=== PATIENT | female | born 1985 | race Caucasian/White ===

== ENCOUNTER 2019-06-04 09:03 | Outpatient (CLI) | payer BC | END 2019-06-04 09:50 | disposition home or self-care (01) | LOC: LDOP 09:03 | PROVIDERS: ATTEND Obstetrics & Gynecology | DX: O24.414 Gestational diabetes mellitus in pregnancy, insulin controlled (principal); Z3A.34 34 weeks gestation of pregnancy | CPT/HCPCS: 59025; 99201; G0463 ==

== ENCOUNTER 2019-06-28 10:29 | Inpatient (IN) | payer BC ==
[~2019-06-28] VITALS: Ht 157.5 cm; Wt 86.4 kg
[2019-06-28 11:05] VITALS: BP 125/83
[2019-06-28 11:05] LABS: MICROSCOPIC NOT IND
[2019-06-28] MEDS ORDERED: OXYTOCIN 30U/ 0.9% NaCL 500ML 500 ML IV ONE (12:40)
[2019-06-28] MEDS ORDERED: D5%-LACTATED RINGERS 1,000 ML IV SCH (12:40)
[2019-06-28] MEDS ORDERED: LACTATED RINGERS 1,000 ML IV SCH (12:40)
[2019-06-28] MEDS ORDERED: OXYTOCIN 30U/ 0.9% NaCL 500ML 500 ML IV PRN ×2 (12:40)
[2019-06-28] MEDS ORDERED: TERBUTALINE 1 MG/ML, 1ML SQ PRN (13:00)
[2019-06-28] MEDS ORDERED: FENTANYL PF 100 MCG/2ML IVPush PRN (13:00)
[2019-06-28] MEDS ORDERED: ONDANSETRON 2MG/ML, 2ML IVPush PRN (13:00)
[2019-06-28] MEDS ORDERED: ALUMINUM/MAG/SIMETHICONE 30 ML UDC PO PRN (13:00)
[2019-06-28] MEDS ORDERED: TERBUTALINE 1 MG/ML, 1ML IVPush PRN (13:00)
[2019-06-28] MEDS ORDERED: CALCIUM CARBONATE 500 MG TAB.CHEW PO PRN (13:00)
[2019-06-28] MEDS ORDERED: FENTANYL PF 100 MCG/2ML IV PRN (13:00)
[2019-06-28] MEDS ORDERED: MISOPROSTOL 25 MCG TABLET VG PRN (13:00)
[2019-06-28 13:17] LABS: BASOPHILS # (AUTO) 0.07 x10^3/uL (0-0.1); BASOPHILS % (AUTO) 1 % (0-1); EOSINOPHILS # (AUTO) 0.02 x10^3/uL (0-0.4); EOSINOPHILS % (AUTO) 0 % (1-7); LYMPHOCYTES % (AUTO) 14 % (22-44); MD NO; MEAN CORPUSCULAR HEMOGLOBIN 30.1 pg (27.0-34.8); MEAN CORPUSCULAR HGB CONC 33.2 g/dL (32.4-35.8); MEAN CORPUSCULAR VOLUME 90.8 fL (80-100); MEAN PLATELET VOLUME 8.1 fL (7.4-10.4); MONOCYTES # (AUTO) 0.75 x10^3/uL (0.2-0.8); MONOCYTES % (AUTO) 7 % (2-9); NEUTROPHILS # (AUTO) 8.62 x10^3/uL (1.8-6.8); NEUTROPHILS % (AUTO) 78 % (42-75); PLATELET COUNT 348 x10^3/uL (130-400); RED BLOOD COUNT 4.29 x10^6/uL (3.82-5.3); RED CELL DISTRIBUTION WIDTH 13.4 % (9.6-15.2)
[2019-06-28] MEDS ORDERED: NEWBORN KIT ONE (14:12)
[2019-06-28] MEDS ORDERED: OXYTOCIN 30U/ 0.9% NaCL 500ML 500 ML ONE ×2 (14:12→20:24)
[2019-06-28] MEDS ORDERED: MISOPROSTOL 25 MCG TABLET ONE (14:12)
[2019-06-28] MEDS ORDERED: MISOPROSTOL 200 MCG TABLET ONE (14:13)
[2019-06-28] MEDS ORDERED: LIDOCAINE 1%, 20ML ONE (14:13)
[2019-06-28] MEDS ORDERED: OXYcodone/APAP 10/325MG TABLET ONE (18:55)
[2019-06-28] MEDS ORDERED: IBUPROFEN 600 MG TABLET ONE (18:56)
[2019-06-28] MEDS: IBUPROFEN 600 MG TABLET PO PRN (19:00)
[2019-06-28] MEDS ORDERED: FENTANYL PF 100 MCG/2ML ONE (19:12)
[2019-06-28] MEDS ORDERED: DOCUSATE 100 MG CAPSULE PO PRN (19:30)
[2019-06-28] MEDS ORDERED: ONDANSETRON 2MG/ML, 2ML IV PRN (19:30)
[2019-06-28] MEDS ORDERED: OXYcodone/APAP 5/325MG TABLET PO PRN ×2 (19:30)
[2019-06-28] MEDS ORDERED: MISOPROSTOL 200 MCG TABLET PR PRN (19:30)
[2019-06-28] MEDS ORDERED: CARBOPROST TROMETHAMINE 250 MCG/ML, 1ML IM PRN (19:30)
[2019-06-28] MEDS ORDERED: SIMETHICONE 80 MG CHEW TAB PO PRN (19:30)
[2019-06-28] MEDS ORDERED: ACETAMINOPHEN 325 MG TABLET PO PRN (19:30)
[2019-06-28] MEDS ORDERED: METHYLERGONOVINE 0.2 MG/ML IM PRN (19:30)
[2019-06-28] MEDS: OXYTOCIN 30U/ 0.9% NaCL 500ML 500 ML IV SCH (20:30)
[2019-06-28 21:05] VITALS: BP 130/64
[2019-06-29 01:00] VITALS: BP 113/77
[2019-06-29] MEDS: IBUPROFEN 600 MG TABLET PO PRN ×3 (01:05→18:35)
[2019-06-29 02:55] LABS: BASOPHILS # (AUTO) 0.06 x10^3/uL (0-0.1); BASOPHILS % (AUTO) 0 % (0-1); EOSINOPHILS # (AUTO) 0.13 x10^3/uL (0-0.4); EOSINOPHILS % (AUTO) 1 % (1-7); LYMPHOCYTES % (AUTO) 11 % (22-44); MD NO; MEAN CORPUSCULAR HEMOGLOBIN 30.2 pg (27.0-34.8); MEAN CORPUSCULAR HGB CONC 32.8 g/dL (32.4-35.8); MEAN CORPUSCULAR VOLUME 92.2 fL (80-100); MEAN PLATELET VOLUME 8.2 fL (7.4-10.4); MONOCYTES # (AUTO) 1.08 x10^3/uL (0.2-0.8); MONOCYTES % (AUTO) 8 % (2-9); NEUTROPHILS # (AUTO) 11.31 x10^3/uL (1.8-6.8); NEUTROPHILS % (AUTO) 80 % (42-75); PLATELET COUNT 284 x10^3/uL (130-400); RED BLOOD COUNT 3.55 x10^6/uL (3.82-5.3); RED CELL DISTRIBUTION WIDTH 13.5 % (9.6-15.2)
[2019-06-29] MEDS: OXYTOCIN 30U/ 0.9% NaCL 500ML 500 ML IV SCH ×2 (05:24→15:24)
[2019-06-29 05:40] VITALS: BP 111/74
[2019-06-29 08:52] VITALS: BP 119/82
[2019-06-29] MEDS ORDERED: PRENATAL VIT/IRON/FA 1 EACH TABLET PO SCH (09:00)
[2019-06-29 11:45] VITALS: BP 115/80
[2019-06-29] MEDS ORDERED: IBUP100T6 PO (17:49)
[2019-06-29] MEDS ORDERED: DOCU-131 PO (17:50)
[2019-06-29 18:33] VITALS: BP 123/79
== END 2019-06-29 20:00 | disposition home or self-care (01) | DRG 806 ==
LOC: LDOP 10:29 → LDIP 12:52 → 2NW 20:49
PROVIDERS: ADMIT Obstetrics & Gynecology; ATTEND Obstetrics & Gynecology
PROC: 10D07Z6 Extraction of Products of Conception, Vacuum, Via Natural or Artificial Opening (ICD-10-PCS; principal; 2019-06-28)
PROC: 0UQMXZZ Repair Vulva, External Approach (ICD-10-PCS; 2019-06-28)
DX: O24.429 Gestational diabetes mellitus in childbirth, unspecified control (principal); O41.03X0 Oligohydramnios, third trimester, not applicable or unspecified; Z37.0 Single live birth; E66.9 Obesity, unspecified; O99.214 Obesity complicating childbirth; O71.82 Other specified trauma to perineum and vulva; O70.0 First degree perineal laceration during delivery; O76 Abnormality in fetal heart rate and rhythm complicating labor and delivery; Z3A.37 37 weeks gestation of pregnancy; Z80.0 Family history of malignant neoplasm of digestive organs; Z80.3 Family history of malignant neoplasm of breast; Z82.3 Family history of stroke; Z82.49 Family history of ischemic heart disease and other diseases of the circulatory system; Z87.410 Personal history of cervical dysplasia; Z83.3 Family history of diabetes mellitus
CPT/HCPCS: 36415; 81003; 82803; 82962; 84112; 85025; 86592; 86850; 86900; 87086; 89060; G0378; J3010; J2590; J7120; Q0114